=== PATIENT | female | born 1990 | race Caucasian/White ===

== ENCOUNTER 2019-05-11 19:18 | Emergency (ER) | payer MEDICAID ==
--- NOTE | 2019-05-11 19:52 | ER Document Report ---
ED Medical Screen (RME) - General Chief Complaint: Chest Pain Stated Complaint: ABDOMINAL PAIN Time Seen by Provider: 05/11/19 19:45 Mode of Arrival: Ambulatory Information source: Patient Notes: Otherwise healthy 28-year-old female presenting to the emergency department intermittent right upper quadrant abdominal pain. Patient reports pain is been ongoing for the last 3 months, she states pain comes and small episodes lasting 10 to 15 minutes. She reports associated shortness of breath and states she gets hot and sweaty. She denies any nausea vomiting or diarrhea. She denies any associated with food intake. Exam: Right upper quadrant tenderness, negative Avina sign. Exam limited due to position in triage. I have greeted and performed a rapid initial assessment of this patient. A comprehensive ED assessment and evaluation of the patient, analysis of test results and completion of the medical decision making process will be conducted by additional ED providers. I have specifically instructed the patient or family members with the patient to immediately return to any nursing staff should anything change in the patient's condition or with their chief complaint. - Related Data Allergies/Adverse Reactions: tramadol Adverse Reaction (Verified 05/11/19 19:45) Past Medical History - Social History Chew tobacco use (# tins/day): No Frequency of alcohol use: None Drug Abuse: Heroin Physical Exam - Vital signs Vitals: Temp Pulse Resp BP Pulse Ox 98.2 F 67 18 125/69 100 05/11/19 19:27 05/11/19 19:27 05/11/19 19:27 05/11/19 19:27 05/11/19 19:27 Course - Vital Signs Vital signs: Temp Pulse Resp BP Pulse Ox 98.2 F 67 18 125/69 100 05/11/19 19:42 05/11/19 19:27 05/11/19 19:42 05/11/19 19:27 05/11/19 19:42
[2019-05-11 20:18] LABS: ABSOLUTE BASOPHILS # (AUTO) 0.2 10^3/uL (0.0-0.2); ABSOLUTE EOSINOPHILS # (AUTO) 1.4 10^3/uL (0.0-0.6); ABSOLUTE MONOCYTES (AUTO) 0.6 10^3/uL (0.1-1.4); BASOPHILS % (AUTO) 1.4 % (0-2); EOSINOPHILS % (AUTO) 11.4 % (0-6); HEMATOCRIT 37.7 % (36.0-47.0); HEMOGLOBIN 12.8 g/dL (12.0-15.5); LYMPHOCYTES % (AUTO) 24.4 % (13-45); MEAN CORPUSCULAR HEMOGLOBIN 30.3 pg (27.0-33.4); MEAN CORPUSCULAR VOLUME 89 fl (80-97); MONOCYTES % (AUTO) 5.2 % (3-13); PLATELET COUNT 314 10^3/uL (150-450); RED BLOOD COUNT 4.24 10^6/uL (3.72-5.28); RED CELL DISTRIBUTION WIDTH 13.4 % (11.5-14.0); SEGMENTED NEUTROPHILS % (AUTO) 57.6 % (42-78); TOTAL CELLS COUNTED % (AUTO) 100 %; WHITE BLOOD COUNT 12.2 10^3/uL (4.0-10.5)
[2019-05-11 20:22] LABS: APPEARANCE,URINE SLIGHTLY-CLOUDY; BILIRUBIN,URINE NEGATIVE (NEGATIVE); COLOR,URINE YELLOW; GLUCOSE, URINE NEGATIVE (NEGATIVE); KETONES,URINE TRACE mg/dL (NEGATIVE); LEUKOCYTE ESTERASE,URINE NEGATIVE (NEGATIVE); NITRITE,URINE NEGATIVE (NEGATIVE); PROTEIN,URINE 30 mg/dL (NEGATIVE); URINE SPECIFIC GRAVITY 1.027
[2019-05-11 20:41] LABS: ALBUMIN 4.5 g/dL (3.5-5.0); ALKALINE PHOSPHATASE 84 U/L (38-126); ANION GAP 10 (5-19); ASPARTATE AMINO TRANSFERASE 48 U/L (14-36); BILIRUBIN,DIRECT 0.2 mg/dL (0.0-0.4); BILIRUBIN,TOTAL 0.4 mg/dL (0.2-1.3); BLOOD UREA NITROGEN 11 mg/dL (7-20); CALCIUM 9.8 mg/dL (8.4-10.2); CARBON DIOXIDE 27 mmol/L (22-30); CHLORIDE 107 mmol/L (98-107); GLUCOSE 105 mg/dL (75-110); POTASSIUM 4.3 mmol/L (3.6-5.0); TOTAL PROTEIN 7.5 g/dL (6.3-8.2)
--- NOTE | 2019-05-11 20:50 | RADIOLOGY REPORT (SQ) ---
EXAM DESCRIPTION: [facility]: US ABDOMEN LIMITED CLINICAL HISTORY: 28 years Female; RUQ pain TECHNIQUE: Right upper quadrant ultrasound was performed. COMPARISON: None. FINDINGS: Pancreas: Visualized portions are unremarkable. Liver: 11.7 cm long Portal venous flow is hepatopedal, normal. Gallbladder: There is a large shadowing calculus is at least 11 mm diameter at the neck. Other smaller calculi are also noted. Wall is 2 mm. No Avina sign. No pericholecystic fluid. Common bile duct: 2 mm. Right kidney: 9.2 x 4.1 x 5.2 cm. No hydronephrosis. IMPRESSION: 1. Cholelithiasis with a large gallstone at the neck. No objective sonographic evidence for acute cholecystitis 2. No biliary ductal distention
--- NOTE | 2019-05-11 21:25 | EKG REPORT ---
SEVERITY:- NORMAL ECG - SINUS RHYTHM : Confirmed by: Gaviota Aragon 11-May-2019 21:25:15
--- NOTE | 2019-05-11 21:35 | ER Document Report ---
ED General - General Chief Complaint: Chest Pain Stated Complaint: ABDOMINAL PAIN Time Seen by Provider: 05/11/19 19:45 Primary Care Provider: COOPER VELASQUEZ MD [ACTIVE STAFF] - Follow up in 3-5 days PARI DENG MD [ACTIVE STAFF] - Follow up in 1 week Mode of Arrival: Ambulatory Notes: 28-year-old female presents with right upper quadrant pain that is been intermittent for the past 3 to 4 months, got worse today. Patient states it usually lasts approximately 10 to 15 minutes however today it lasted 30 minutes. Patient states she had some associated nausea today. Patient denies any vomiting, diarrhea, constipation, urinary symptoms, fever, chills. Patient states sometimes radiates to her right flank and into her right chest. When the pain comes on it makes it hard to breathe. Patient denies any pain at the moment. - Related Data Allergies/Adverse Reactions: tramadol Adverse Reaction (Verified 05/11/19 19:45) Past Medical History - General Information source: Patient - Social History Smoking Status: Current Every Day Smoker Chew tobacco use (# tins/day): No Frequency of alcohol use: None Drug Abuse: Heroin Family History: None Patient has suicidal ideation: No Patient has homicidal ideation: No Review of Systems - Review of Systems Notes: Constitutional: Negative for fever. HENT: Negative for sore throat. Eyes: Negative for visual changes. Cardiovascular: Positive for chest pain. Respiratory: Negative for shortness of breath. Gastrointestinal: Positive for abdominal pain. Negative for vomiting or diarrhea. Genitourinary: Negative for dysuria. Musculoskeletal: Negative for back pain. Skin: Negative for rash. Neurological: Negative for headaches, weakness or numbness. 10 point ROS negative except as marked above and in HPI. Physical Exam - Vital signs Vitals: Temp Pulse Resp BP Pulse Ox 98.2 F 67 18 125/69 100 05/11/19 19:27 05/11/19 19:27 05/11/19 19:27 05/11/19 19:27 05/11/19 19:27 - Notes Notes: GENERAL: Well-appearing, well-nourished and in no acute distress. HEAD: Atraumatic, normocephalic. EYES: Extraocular movements intact, sclera anicteric, conjunctiva are normal. NECK: Normal range of motion, supple without lymphadenopathy or JVD. LABDOMEN: Soft, mild tenderness to right upper quadrant. No guarding, no rebound. No masses appreciated. No CVA tenderness. EXTREMITIES: Normal range of motion, no pitting or edema. No clubbing or cyanosis. NEUROLOGICAL: Cranial nerves II through XII grossly intact. Normal speech, normal gait. PSYCH: Normal mood, normal affect. SKIN: Warm, Dry, normal turgor, no rashes or lesions noted. Course - Re-evaluation Re-evalutation: 05/11/19 Nontoxic, well-appearing 28-year-old female presents with right upper quadrant pain. Associated nausea without vomiting. Patient's CBC shows a mild leukocytosis of 12.2. CMP is unremarkable except for mildly elevated AST at 48. Alk phos is normal at 84 and ALT is also normal at 22. Patient's lipase is mildly elevated at 542. Patient is afebrile. Patient's pain is currently gone at this moment without any pain medications. Patient denies any nausea at this time. Patient's ultrasound shows cholelithiasis without cholecystitis. Discussed all results with patient and patient's family. Patient also given copy of report of ultrasound. Patient given referral to general surgeon for follow-up in 1 to 2 weeks. Patient also given referral back to PCP. Strict return precautions given. All questions/concerns addressed prior to discharge. Patient voices understanding and agrees with plan of care. - Vital Signs Vital signs: Temp Pulse Resp BP Pulse Ox 98.2 F 67 18 125/69 100 05/11/19 19:42 05/11/19 19:27 05/11/19 19:42 05/11/19 19:27 05/11/19 19:42 - Laboratory Result Diagrams: 05/11/19 20:01 05/11/19 20:01 Laboratory results interpreted by me: 05/11/19 05/11/19 05/11/19 20:01 20:01 20:01 WBC 12.2 H Eos % (Auto) 11.4 H Absolute Eos (auto) 1.4 H AST 48 H Lipase 542.0 H Urine Protein 30 H Urine Ketones TRACE H Urine Urobilinogen 4.0 H Discharge - Discharge Clinical Impression: Biliary colic Cholelithiasis Qualifiers: Cholelithiasis location: gallbladder Cholecystitis presence: without cholecystitis Biliary obstruction: without biliary obstruction Qualified Code(s): K80.20 - Calculus of gallbladder without cholecystitis without obstruction Condition: Stable Disposition: HOME, SELF-CARE Instructions: Abdominal Pain ([facility]), Antinausea Medication ([facility]), Gallbladder Disease ([facility]), Low-Fat Diet ([facility]) Additional Instructions: Your ultrasound showed gallstones. Please take medications as prescribed. Please follow-up with the surgeon listed in 1 to 2 weeks. Please follow-up with your primary care doctor in 3 to 5 days or clinic listed. Return to ER immediately if you start having any worsening symptoms, including vomiting not controlled by medication, fever, worsening abdominal pain, chest pain, shortness of breath, or any other symptoms that are concerning to you. Prescriptions: Ondansetron [Zofran Odt 4 mg Tablet] 4 mg PO Q4HP PRN #30 tab.rapdis PRN Reason: Dicyclomine HCl [Bentyl 20 mg Tablet] 20 mg PO QID #40 tablet Ibuprofen [Motrin 800 mg Tablet] 800 mg PO Q8H PRN #30 tab PRN Reason: Referrals: PARI DENG MD [ACTIVE STAFF] - Follow up in 1 week COOPER VELASQUEZ MD [ACTIVE STAFF] - Follow up in 3-5 days
[2019-05-11 21:57] VITALS: BP 121/68
== END 2019-05-11 21:57 | disposition home or self-care (01) ==
LOC: ER 19:18
DX: K80.70 Calculus of gallbladder and bile duct without cholecystitis without obstruction (principal); R10.11 Right upper quadrant pain; R07.9 Chest pain, unspecified; R10.9 Unspecified abdominal pain
CPT/HCPCS: 36415; 76705; 80053; 81001; 83690; 84702; 85025; 93005; 93010; 99284

== ENCOUNTER 2019-05-30 07:51 | Day surgery (SDC) | payer MEDICAID ==
[~2019-05-30 07:51] MED LIST: ACETAMINOPHEN 325 MG TABLET PO PRN; CEFAZOLIN 1 GM/D5W RTU 1 GM/50 ML RTUPB IV PRN; GLYCOPYRROLATE 1 MG/5 ML VIAL ONE; NEOSTIGMINE METHYLSULFATE 10 MG/10 ML VIAL ONE; RINGERS SOLUTION,LACTATED 1,000 ML IV PRN; ROCURONIUM BROMIDE INJ 50 MG/5 ML VIAL IV ONE
[2019-05-30] MEDS ORDERED: SCOPOLAMINE HYDROBROMIDE 1.5 MG PATCH.TD72 ONE (08:05)
[2019-05-30] MEDS ORDERED: MIDAZOLAM 2 MG/2 ML INJ ONE ×2 (08:05→09:37)
[2019-05-30] MEDS ORDERED: FAMOTIDINE INJ/PF 20 MG/2 ML SDV IV ONE ×2 (08:05→08:15)
[2019-05-30] MEDS ORDERED: ALBUTEROL SULFATE 0.083% NEB 2.5 MG/3 ML AMPUL NEB ONE ×2 (08:05→08:15)
[2019-05-30] MEDS ORDERED: MIDAZOLAM 2 MG/2 ML INJ IV ONE (08:15)
[2019-05-30] MEDS ORDERED: SCOPOLAMINE HYDROBROMIDE 1.5 MG PATCH.TD72 TD ONE (08:15)
[2019-05-30] MEDS ORDERED: CEFAZOLIN INJ 1 GM VIAL ONE (09:11)
[2019-05-30] MEDS ORDERED: BUPIVACAINE HCL 0.25 % INJ/PF (2.5 MG/1 ML) 30 ML VIAL ONE (09:31)
[2019-05-30] MEDS ORDERED: FENTANYL CITRATE INJ/PF 250 MCG/5 ML AMPULE ONE (09:37)
[2019-05-30] MEDS ORDERED: LIDOCAINE 2% INJ-PF (100 MG/5 ML) SYRINGE ONE (09:37)
[2019-05-30] MEDS ORDERED: PROPOFOL INJ 200 MG/20 ML VIAL IV ONE (09:38)
[2019-05-30] MEDS ORDERED: ONDANSETRON HCL INJ/PF 4 MG/2 ML SDV ONE (09:38)
[2019-05-30] MEDS ORDERED: DEXAMETHASONE SOD PHOSPHATE INJ 4 MG/1 ML VIAL ONE (10:15)
[2019-05-30] MEDS ORDERED: DEXMEDETOMIDINE INJ 80 MCG/20 ML VIAL IV ONE (10:47)
--- NOTE | 2019-05-30 11:16 | Discharge Summary ---
Discharge Summary (SDC) - Discharge Final Diagnosis: Symptomatic cholelithiasis with cholecystitis Date of Surgery: 05/30/19 Discharge Date: 05/30/19 Condition: Good Treatment or Instructions: Resume preoperative medications, diet, activity; may shower; return to [facility] in 1 to 2 weeks; prescription for Toradol on chart. Patient may shower in 48 hours. Referrals: ALIZA LOCO MD [Primary Care Provider] - Discharge Diet: As Tolerated Discharge Activity: Activity As Tolerated Home Care Assistance: None Needed Report the Following to Your Physician Immediately: Shortness of Breath, Increase in Pain, Fever over 101 Degrees
--- NOTE | 2019-05-30 11:18 | Operative Report ---
Operative Report DATE OF SURGERY: 05/30/19 PREOPERATIVE DIAGNOSIS: Symptomatic cholelithiasis with cholecystitis POSTOPERATIVE DIAGNOSIS: Same OPERATION: Laparoscopic cholecystectomy SURGEON: ILIA FREITAS ANESTHESIA: GA TISSUE REMOVED OR ALTERED: 1 gallbladder COMPLICATIONS: None ESTIMATED BLOOD LOSS: Scant INTRAOPERATIVE FINDINGS: See below PROCEDURE: After obtaining informed consent, the patient was taken to the operating room. General Anesthesia was induced; the arms were extended, and the abdomen was exposed, and prepped and draped in a sterile fashion. Instrumentation was set up for laparoscopic cholecystectomy. Surgical plan and surgical timeout were conducted. A vertical incision was made above the umbilicus, and a verres needle was inserted uneventfully into the peritoneal cavity. Pneumoperitoneum was established. The verres needle was removed and a 5 mm trocar was inserted and a 5 mm flexible laparoscope was inserted. Visualization of the peritoneal cavity confirmed safe uneventful entry. Under direct visualization 3 additional 5 mm ports were established, one in the subxiphoid position and second in the subcostal position. A grasper was placed on the fundus of the gallbladder and the gallbladder is elevated over the right surface of the liver; a second grasper was used to grasp the infundibulum of the gallbladder. Visualization of the hepato ileal area anatomy appeared normal. The neck of the gallbladder and junction with the cystic duct was dissected out. The Cystic artery was in its usual location, medial and cephalad to the cystic duct. The cystic artery had 2 branches, each was surrounded with a right angle clamp, clipped twice pr oximally, once distally and divided with laparoscopic scissors. Photos were taken. We now opened the triangle of Calot by dividing the peritoneal reflection on both the medial and lateral sides of the cystic duct infundibular junction. The critical view was obtained. Photos were taken. We now milked the cystic duct of any possible stones, clipped the cystic duct proximally 3 times, once dist ally and divided the duct with scissors. Photos were taken again. The gallbladder was now removed from the undersurface of the liver using hook cautery dissection. Graspers were repositioned and the gallbladder was removed uneventfully from the abdominal cavity through the super umbilical port site incision. The specimen was examined, then passed off to pathology for permanent analysis. We returned to the peritoneal cavity check for bleeding, and evidence of bile leak, and there was none. We Confirmed satisfactory placement of clips on cystic duct and cystic artery were secured . At this point we felt the operation was complete. The subcutaneous tissue was then anesthetized with quarter percent Marcaine Sponge and needle counts are correct. All ports removed under direct visualization pneumoperitoneum evacuated, the supraumbilical fascial defect closed with 0 Vicryl, and 5 mm port wounds closed with 3-0 Vicryl suture, benzoin and Steri-Strips. The patient was extubated, and taken to the recovery room in stable condition.
[2019-05-30] MEDS ORDERED: KETOROLAC TROMETHAMINE INJ/PF 30 MG/1 ML SDV ONE (11:37)
[2019-05-30] MEDS ORDERED: ACETAMINOPHEN 1,000 MG/100 ML RTUPB IV ONE (11:38)
[2019-05-30] MEDS ORDERED: HYDROMORPHONE HCL INJ/PF 2 MG/ML AMPULE ONE (12:08)
[2019-05-30 14:36] VITALS: BP 110/72
== END 2019-05-30 14:10 | disposition home or self-care (01) ==
LOC: OROUT 07:51
PROVIDERS: ATTEND Surgery
DX: K80.10 Calculus of gallbladder with chronic cholecystitis without obstruction (principal); F17.210 Nicotine dependence, cigarettes, uncomplicated; Z79.899 Other long term (current) drug therapy; I20.9 Angina pectoris, unspecified; Z88.5 Allergy status to narcotic agent
CPT/HCPCS: 81025; 88304 ×2; 00790; 47562; J2250; J0690; J3490 ×5; J1100; J3010; J2001; J1885; J2710; J1170; J2405; J2704; S0028; J0131; 790